=== PATIENT | male | born 1950 | race Hispanic/Latino ===

== ENCOUNTER 2020-09-28 12:42 | Inpatient (IN) | payer MEDICARE ==
[2020-09-28] VITALS (9 sets, daily range): BP systolic 106–149; BP diastolic 72–80
[~2020-09-28] VITALS: Ht 170.2 cm; Wt 75.7 kg
[2020-09-28] MEDS ORDERED: ASPIRIN 81 MG CHEW TAB PO ONE (13:15)
[2020-09-28 13:33] LABS: BASOPHILS # (AUTO) 0.1 (0.0-0.1); BASOPHILS % 0.5 % (0.0-1.0); EOSINOPHILS # (AUTO) 0.1 (0.0-0.4); HEMATOCRIT 48.9 % (38.2-49.6); HEMOGLOBIN 16.5 g/dL (14.0-18.0); LYMPHOCYTES # (AUTO) 0.5 (1.0-3.2); LYMPHOCYTES % 4.5 % (18.0-39.1); MEAN CORPUSCULAR HEMOGLOBIN 30.4 pg (28-32); MEAN CORPUSCULAR HGB CONC 33.7 g/dL (31-35); MEAN CORPUSCULAR VOLUME 90.2 fL (81-99); MONOCYTES # (AUTO) 0.5 (0.2-0.8); MONOCYTES % 3.9 % (4.4-11.3); NEUTROPHILS # (AUTO) 10.3 (2.1-6.9); NEUTROPHILS % 86.7 % (38.7-80.0); PLATELET COUNT 376 x10e3/uL (140-360); RED BLOOD COUNT 5.42 x10e6/uL (4.3-5.7); RED CELL DISTRIBUTION WIDTH 13.3 % (11.7-14.4)
[2020-09-28 13:54] LABS: ALBUMIN 2.6 g/dL (3.5-5.0); ALBUMIN/GLOBULIN RATIO 0.6 (0.8-2.0); ANION GAP 19.8 mmol/L (8-16); CALCIUM 9.2 mg/dL (8.4-10.2); CARBON DIOXIDE 22 mmol/L (22-29); CHLORIDE 99 mmol/L (98-107); CREATININE, SERUM 0.87 mg/dL (0.72-1.25); EST GLOMERULAR FILTRATION RATE > 60 ML/MIN (60-); GLUCOSE 109 mg/dL (74-118); POTASSIUM 3.8 mmol/L (3.5-5.1); SODIUM 137 mmol/L (136-145)
[2020-09-28] MEDS ORDERED: IBUPROFEN200 MG PO (14:05)
[2020-09-28] MEDS ORDERED: OMEPRAZOLE40 MG PO (14:05)
[2020-09-28] MEDS ORDERED: SYNTHROID75 MCG PO (14:05)
[2020-09-28 14:11] LABS: ALANINE AMINOTRANSFERASE 96 IU/L (0-55); ALKALINE PHOSPHATASE 86 IU/L (40-150); BLOOD UREA NITROGEN 25 mg/dL (7-26); BUN/CREATININE RATIO 27 (6-25); CREATINE KINASE 40 IU/L (30-200)
[2020-09-28] MEDS ORDERED: CEFTRIAXONE SOD 1 GM VIAL IV SCH (14:15)
[2020-09-28] MEDS: DEXAMETHASONE SOD PHOS 10 MG/1 ML VIAL IV SCH (14:46)
[2020-09-28] MEDS: CEFTRIAXONE SOD 1 GM in SODIUM CHLORIDE 0.9% 50ML 50 ML IV SCH (14:47)
[2020-09-28] MEDS: AZITHROMYCIN 500MG/NS 250 ML 250 ML IV SCH (14:47)
[2020-09-28] MEDS: ZINC SULFATE 220 MG CAP PO SCH (14:48)
[2020-09-28] MEDS ORDERED: TRAMADOL HCL 50 MG TAB PO PRN (18:45)
[2020-09-28] MEDS: ACETAMINOPHEN 325 MG TAB PO PRN (19:30)
[2020-09-28] MEDS ORDERED: ENOXAPARIN SOD INJ 40 MG/0.4 ML SYR SC SCH (21:00)
[2020-09-28] MEDS ORDERED: ZOLPIDEM TARTRATE 5 MG TAB PO PRN (21:00)
[2020-09-28] MEDS: ENOXAPARIN SODIUM INJ 100 MG/ML SYR SC SCH (21:35)
[2020-09-28] MEDS: ATORVASTATIN 20 MG TAB PO SCH (21:35)
[2020-09-29] VITALS (29 sets, daily range): BP systolic 89–129; BP diastolic 57–77
[2020-09-29] MEDS: ACETAMINOPHEN 325 MG TAB PO PRN ×3 (04:06→17:45)
[2020-09-29 06:10] LABS: BASOPHILS % 0.3 % (0.0-1.0); EOSINOPHILS # (AUTO) 0.2 (0.0-0.4); EOSINOPHILS % 1.7 % (0.0-6.0); HEMATOCRIT 44.9 % (38.2-49.6); HEMOGLOBIN 15.3 g/dL (14.0-18.0); LYMPHOCYTES # (AUTO) 0.5 (1.0-3.2); LYMPHOCYTES % 5.1 % (18.0-39.1); MEAN CORPUSCULAR HEMOGLOBIN 30.2 pg (28-32); MEAN CORPUSCULAR HGB CONC 34.1 g/dL (31-35); MEAN CORPUSCULAR VOLUME 88.6 fL (81-99); MONOCYTES # (AUTO) 0.3 (0.2-0.8); MONOCYTES % 3.4 % (4.4-11.3); NEUTROPHILS # (AUTO) 8.3 (2.1-6.9); PLATELET COUNT 365 x10e3/uL (140-360); RED BLOOD COUNT 5.07 x10e6/uL (4.3-5.7); RED CELL DISTRIBUTION WIDTH 13.3 % (11.7-14.4)
[2020-09-29] MEDS: LEVOTHYROXINE SODIUM 75 MCG TAB PO SCH (06:22)
[2020-09-29 06:32] LABS: CREATINE KINASE MB 2.5 ng/mL (0-5.0)
[2020-09-29 07:01] LABS: ALANINE AMINOTRANSFERASE 75 IU/L (0-55); ALBUMIN 2.1 g/dL (3.5-5.0); ALBUMIN/GLOBULIN RATIO 0.5 (0.8-2.0); ALKALINE PHOSPHATASE 69 IU/L (40-150); ANION GAP 14.8 mmol/L (8-16); BLOOD UREA NITROGEN 28 mg/dL (7-26); BUN/CREATININE RATIO 35 (6-25); CALCIUM 8.6 mg/dL (8.4-10.2); CARBON DIOXIDE 19 mmol/L (22-29); CHLORIDE 104 mmol/L (98-107); CREATININE, SERUM 0.81 mg/dL (0.72-1.25); EST GLOMERULAR FILTRATION RATE > 60 ML/MIN (60-); GLUCOSE 89 mg/dL (74-118); POTASSIUM 3.8 mmol/L (3.5-5.1); SODIUM 134 mmol/L (136-145)
[2020-09-29 07:17] LABS: CHOL/HDL RATIO 5.3 (3.9-4.7)
[2020-09-29] MEDS: PANTOPRAZOLE SOD 40 MG TABEC PO SCH (08:03)
[2020-09-29] MEDS: ASPIRIN 81 MG ENTERIC COATED PO SCH (08:04)
[2020-09-29] MEDS: AZITHROMYCIN 500MG/NS 250 ML 250 ML IV SCH (08:04)
[2020-09-29] MEDS: DEXAMETHASONE SOD PHOS 10 MG/1 ML VIAL IV SCH (08:04)
[2020-09-29] MEDS: ENOXAPARIN SODIUM INJ 100 MG/ML SYR SC SCH (09:26)
[2020-09-29] MEDS ORDERED: SODIUM CHLORIDE 0.9% 1000ML 1,000 ML IV ONE (11:15)
[2020-09-29] MEDS: CHOLECALCIFEROL 1,000 UNIT TAB PO SCH (12:25)
[2020-09-29] MEDS: CEFTRIAXONE SOD 1 GM in SODIUM CHLORIDE 0.9% 50ML 50 ML IV SCH (15:09)
[2020-09-29 16:38] LABS: CREATINE KINASE MB 2.1 ng/mL (0-5.0)
[2020-09-29] MEDS ORDERED: ENOXAPARIN INJ 80 MG/0.8 ML SYR SC ONE (20:59)
[2020-09-29] MEDS ORDERED: ENOXAPARIN INJ 80 MG/0.8 ML SYR SC SCH (21:00)
[2020-09-29] MEDS: ATORVASTATIN 20 MG TAB PO SCH (21:07)
[2020-09-30] VITALS (26 sets, daily range): BP systolic 95–146; BP diastolic 62–89
[2020-09-30] MEDS: ACETAMINOPHEN 325 MG TAB PO PRN ×4 (00:27→20:30)
[2020-09-30 06:32] LABS: BASOPHILS % 0.2 % (0.0-1.0); HEMATOCRIT 43.2 % (38.2-49.6); HEMOGLOBIN 14.5 g/dL (14.0-18.0); LYMPHOCYTES # (AUTO) 0.4 (1.0-3.2); LYMPHOCYTES % 4.2 % (18.0-39.1); MEAN CORPUSCULAR HEMOGLOBIN 30.5 pg (28-32); MEAN CORPUSCULAR HGB CONC 33.6 g/dL (31-35); MEAN CORPUSCULAR VOLUME 90.9 fL (81-99); MONOCYTES # (AUTO) 0.5 (0.2-0.8); MONOCYTES % 4.5 % (4.4-11.3); NEUTROPHILS # (AUTO) 8.9 (2.1-6.9); NEUTROPHILS % 88.7 % (38.7-80.0); PLATELET COUNT 429 x10e3/uL (140-360); RED BLOOD COUNT 4.75 x10e6/uL (4.3-5.7); RED CELL DISTRIBUTION WIDTH 13.3 % (11.7-14.4)
[2020-09-30] MEDS: LEVOTHYROXINE SODIUM 75 MCG TAB PO SCH (06:40)
[2020-09-30 07:00] LABS: ALANINE AMINOTRANSFERASE 50 IU/L (0-55); ALBUMIN 1.9 g/dL (3.5-5.0); ALBUMIN/GLOBULIN RATIO 0.5 (0.8-2.0); ALKALINE PHOSPHATASE 62 IU/L (40-150); ANION GAP 15.1 mmol/L (8-16); BLOOD UREA NITROGEN 34 mg/dL (7-26); BUN/CREATININE RATIO 44 (6-25); CALCIUM 8.6 mg/dL (8.4-10.2); CARBON DIOXIDE 21 mmol/L (22-29); CHLORIDE 104 mmol/L (98-107); CREATININE, SERUM 0.78 mg/dL (0.72-1.25); EST GLOMERULAR FILTRATION RATE > 60 ML/MIN (60-); GLUCOSE 120 mg/dL (74-118); POTASSIUM 4.1 mmol/L (3.5-5.1); SODIUM 136 mmol/L (136-145)
[2020-09-30] MEDS: PANTOPRAZOLE SOD 40 MG TABEC PO SCH (07:46)
[2020-09-30] MEDS: AZITHROMYCIN 500MG/NS 250 ML 250 ML IV SCH (08:49)
[2020-09-30] MEDS: ZINC SULFATE 220 MG CAP PO SCH (08:49)
[2020-09-30] MEDS: CHOLECALCIFEROL 1,000 UNIT TAB PO SCH (08:49)
[2020-09-30] MEDS: ASPIRIN 81 MG ENTERIC COATED PO SCH (08:49)
[2020-09-30] MEDS: DEXAMETHASONE SOD PHOS 10 MG/1 ML VIAL IV SCH (08:49)
[2020-09-30] MEDS: ENOXAPARIN INJ 80 MG/0.8 ML SYR SC SCH ×2 (10:25→22:23)
[2020-09-30] MEDS ORDERED: LACTATED RINGER'S 1,000 ML INJ ONE (10:30)
[2020-09-30] MEDS: CEFTRIAXONE SOD 1 GM in SODIUM CHLORIDE 0.9% 50ML 50 ML IV SCH (14:58)
[2020-09-30] MEDS: ATORVASTATIN 20 MG TAB PO SCH (19:26)
[2020-09-30] MEDS ORDERED: ENOXAPARIN INJ 80 MG/0.8 ML SYR SC ONE (22:32)
[2020-10-01] VITALS (25 sets, daily range): BP systolic 111–153; BP diastolic 65–98
[2020-10-01] MEDS: ACETAMINOPHEN 325 MG TAB PO PRN ×4 (02:30→23:13)
[2020-10-01] MEDS: GUAIFENESIN/CODEINE 10 ML CUP PO PRN ×4 (05:36→20:31)
[2020-10-01] MEDS: LEVOTHYROXINE SODIUM 75 MCG TAB PO SCH (06:17)
[2020-10-01 07:05] LABS: BASOPHILS % 0.1 % (0.0-1.0); EOSINOPHILS % 0.2 % (0.0-6.0); HEMATOCRIT 43.2 % (38.2-49.6); HEMOGLOBIN 14.3 g/dL (14.0-18.0); LYMPHOCYTES # (AUTO) 0.3 (1.0-3.2); LYMPHOCYTES % 2.6 % (18.0-39.1); MEAN CORPUSCULAR HGB CONC 33.1 g/dL (31-35); MEAN CORPUSCULAR VOLUME 90.8 fL (81-99); MONOCYTES # (AUTO) 0.6 (0.2-0.8); MONOCYTES % 5.1 % (4.4-11.3); NEUTROPHILS # (AUTO) 10.3 (2.1-6.9); NEUTROPHILS % 90.7 % (38.7-80.0); PLATELET COUNT 489 x10e3/uL (140-360); RED BLOOD COUNT 4.76 x10e6/uL (4.3-5.7); RED CELL DISTRIBUTION WIDTH 13.3 % (11.7-14.4)
[2020-10-01 07:28] LABS: ALANINE AMINOTRANSFERASE 51 IU/L (0-55); ALBUMIN 2.1 g/dL (3.5-5.0); ALBUMIN/GLOBULIN RATIO 0.6 (0.8-2.0); ALKALINE PHOSPHATASE 81 IU/L (40-150); ANION GAP 14.3 mmol/L (8-16); BLOOD UREA NITROGEN 32 mg/dL (7-26); BUN/CREATININE RATIO 44 (6-25); CALCIUM 8.4 mg/dL (8.4-10.2); CARBON DIOXIDE 23 mmol/L (22-29); CHLORIDE 103 mmol/L (98-107); CREATININE, SERUM 0.73 mg/dL (0.72-1.25); EST GLOMERULAR FILTRATION RATE > 60 ML/MIN (60-); GLUCOSE 101 mg/dL (74-118); POTASSIUM 4.3 mmol/L (3.5-5.1); SODIUM 136 mmol/L (136-145)
[2020-10-01] MEDS: PANTOPRAZOLE SOD 40 MG TABEC PO SCH (07:30)
[2020-10-01] MEDS: AZITHROMYCIN 500MG/NS 250 ML 250 ML IV SCH (08:05)
[2020-10-01] MEDS: DEXAMETHASONE SOD PHOS 10 MG/1 ML VIAL IV SCH (08:05)
[2020-10-01] MEDS: ASPIRIN 81 MG ENTERIC COATED PO SCH (08:05)
[2020-10-01] MEDS: CHOLECALCIFEROL 1,000 UNIT TAB PO SCH (08:05)
[2020-10-01] MEDS: ZINC SULFATE 220 MG CAP PO SCH (08:05)
[2020-10-01 09:13] LABS: LYMPHOCYTES % (MANUAL) 1 % (19-48); MONOCYTES % (MANUAL) 5 % (3.4-9.0); NEUTROPHILS % (MANUAL) 93 % (40-74); PLATELET ESTIMATE SLIGHTLY INCREASED; PLATELET MORPHOLOGY COMMENT NORMAL; RBC MORPHOLOGY COMMENT NORMAL
[2020-10-01] MEDS: ENOXAPARIN INJ 80 MG/0.8 ML SYR SC SCH ×2 (11:34→23:12)
[2020-10-01] MEDS: CEFTRIAXONE SOD 1 GM in SODIUM CHLORIDE 0.9% 50ML 50 ML IV SCH (14:55)
[2020-10-01] MEDS ORDERED: DEXMEDETOMIDINE 200MCG/NS 50ML 50 ML IV ONE (20:36)
[2020-10-01] MEDS: DEXMEDETOMIDINE 200MCG/NS 50ML 50 ML IV PRN (20:48)
[2020-10-02] VITALS (22 sets, daily range): BP systolic 79–116; BP diastolic 51–68
[2020-10-02] MEDS: DEXMEDETOMIDINE 200MCG/NS 50ML 50 ML IV PRN ×2 (04:36→15:59)
[2020-10-02] MEDS: GUAIFENESIN/CODEINE 10 ML CUP PO PRN ×4 (04:36→21:34)
[2020-10-02] MEDS: LEVOTHYROXINE SODIUM 75 MCG TAB PO SCH (06:17)
[2020-10-02] MEDS: ACETAMINOPHEN 325 MG TAB PO PRN ×3 (06:17→18:22)
[2020-10-02 06:25] LABS: BASOPHILS % 0.1 % (0.0-1.0); EOSINOPHILS # (AUTO) 0.2 (0.0-0.4); EOSINOPHILS % 1.8 % (0.0-6.0); HEMATOCRIT 41.8 % (38.2-49.6); HEMOGLOBIN 13.8 g/dL (14.0-18.0); LYMPHOCYTES # (AUTO) 0.3 (1.0-3.2); LYMPHOCYTES % 3.1 % (18.0-39.1); MEAN CORPUSCULAR HEMOGLOBIN 30.1 pg (28-32); MEAN CORPUSCULAR VOLUME 91.1 fL (81-99); MONOCYTES # (AUTO) 0.5 (0.2-0.8); MONOCYTES % 4.2 % (4.4-11.3); NEUTROPHILS # (AUTO) 9.7 (2.1-6.9); NEUTROPHILS % 89.3 % (38.7-80.0); PLATELET COUNT 310 x10e3/uL (140-360); RED BLOOD COUNT 4.59 x10e6/uL (4.3-5.7); RED CELL DISTRIBUTION WIDTH 13.3 % (11.7-14.4)
[2020-10-02 06:57] LABS: ALANINE AMINOTRANSFERASE 57 IU/L (0-55); ALBUMIN 1.9 g/dL (3.5-5.0); ALBUMIN/GLOBULIN RATIO 0.5 (0.8-2.0); ALKALINE PHOSPHATASE 89 IU/L (40-150); ANION GAP 10.4 mmol/L (8-16); BLOOD UREA NITROGEN 23 mg/dL (7-26); BUN/CREATININE RATIO 33 (6-25); CALCIUM 8.2 mg/dL (8.4-10.2); CARBON DIOXIDE 24 mmol/L (22-29); CHLORIDE 103 mmol/L (98-107); EST GLOMERULAR FILTRATION RATE > 60 ML/MIN (60-); GLUCOSE 87 mg/dL (74-118); POTASSIUM 4.4 mmol/L (3.5-5.1); SODIUM 133 mmol/L (136-145)
[2020-10-02] MEDS: OMEPRAZOLE 20 MG CAP PO SCH (07:49)
[2020-10-02] MEDS: ASPIRIN 81 MG ENTERIC COATED PO SCH (08:01)
[2020-10-02] MEDS: AZITHROMYCIN 500MG/NS 250 ML 250 ML IV SCH (08:01)
[2020-10-02] MEDS: CHOLECALCIFEROL 1,000 UNIT TAB PO SCH (08:01)
[2020-10-02] MEDS: DEXAMETHASONE SOD PHOS 10 MG/1 ML VIAL IV SCH (08:01)
[2020-10-02] MEDS: ZINC SULFATE 220 MG CAP PO SCH (08:01)
[2020-10-02] MEDS: ENOXAPARIN INJ 80 MG/0.8 ML SYR SC SCH ×2 (10:53→23:46)
[2020-10-02] MEDS: CEFTRIAXONE SOD 1 GM in SODIUM CHLORIDE 0.9% 50ML 50 ML IV SCH (15:10)
[2020-10-03] VITALS (26 sets, daily range): BP systolic 82–129; BP diastolic 46–94
[2020-10-03] MEDS: ACETAMINOPHEN 325 MG TAB PO PRN ×6 (00:33→23:08)
[2020-10-03] MEDS: GUAIFENESIN/CODEINE 10 ML CUP PO PRN ×5 (01:00→23:08)
[2020-10-03 06:00] LABS: BASOPHILS % 0.2 % (0.0-1.0); EOSINOPHILS % 0.1 % (0.0-6.0); HEMATOCRIT 44.7 % (38.2-49.6); HEMOGLOBIN 14.8 g/dL (14.0-18.0); LYMPHOCYTES # (AUTO) 0.4 (1.0-3.2); LYMPHOCYTES % 2.3 % (18.0-39.1); MEAN CORPUSCULAR HEMOGLOBIN 29.9 pg (28-32); MEAN CORPUSCULAR HGB CONC 33.1 g/dL (31-35); MEAN CORPUSCULAR VOLUME 90.3 fL (81-99); MONOCYTES # (AUTO) 0.6 (0.2-0.8); MONOCYTES % 3.5 % (4.4-11.3); NEUTROPHILS # (AUTO) 15.3 (2.1-6.9); PLATELET COUNT 375 x10e3/uL (140-360); RED BLOOD COUNT 4.95 x10e6/uL (4.3-5.7); RED CELL DISTRIBUTION WIDTH 13.2 % (11.7-14.4)
[2020-10-03] MEDS: LEVOTHYROXINE SODIUM 75 MCG TAB PO SCH (06:05)
[2020-10-03 06:19] LABS: ALANINE AMINOTRANSFERASE 46 IU/L (0-55); ALBUMIN 1.7 g/dL (3.5-5.0); ALBUMIN/GLOBULIN RATIO 0.4 (0.8-2.0); ALKALINE PHOSPHATASE 86 IU/L (40-150); ANION GAP 14.3 mmol/L (8-16); BLOOD UREA NITROGEN 26 mg/dL (7-26); BUN/CREATININE RATIO 40 (6-25); CALCIUM 8.5 mg/dL (8.4-10.2); CARBON DIOXIDE 22 mmol/L (22-29); CHLORIDE 103 mmol/L (98-107); CREATININE, SERUM 0.65 mg/dL (0.72-1.25); EST GLOMERULAR FILTRATION RATE > 60 ML/MIN (60-); GLUCOSE 94 mg/dL (74-118); POTASSIUM 4.3 mmol/L (3.5-5.1); SODIUM 135 mmol/L (136-145)
[2020-10-03] MEDS: OMEPRAZOLE 20 MG CAP PO SCH (07:48)
[2020-10-03] MEDS: AZITHROMYCIN 500MG/NS 250 ML 250 ML IV SCH (09:02)
[2020-10-03] MEDS: ASPIRIN 81 MG ENTERIC COATED PO SCH (09:02)
[2020-10-03] MEDS: ZINC SULFATE 220 MG CAP PO SCH (09:02)
[2020-10-03] MEDS: CHOLECALCIFEROL 1,000 UNIT TAB PO SCH (09:02)
[2020-10-03] MEDS: DEXAMETHASONE SOD PHOS 10 MG/1 ML VIAL IV SCH (09:02)
[2020-10-03 09:03] LABS: LYMPHOCYTES % (MANUAL) 3 % (19-48); MONOCYTES % (MANUAL) 2 % (3.4-9.0); NEUTROPHILS % (MANUAL) 95 % (40-74); PLATELET ESTIMATE SLIGHTLY INCREASED; RBC MORPHOLOGY COMMENT NORMAL
[2020-10-03 09:04] LABS: PLATELET MORPHOLOGY COMMENT FEW LARGE
[2020-10-03] MEDS: ENOXAPARIN INJ 80 MG/0.8 ML SYR SC SCH ×2 (10:44→23:06)
[2020-10-03] MEDS: KETOROLAC TROMETHAMINE 30 MG/ML VIAL IV PRN (10:44)
[2020-10-03] MEDS: CEFTRIAXONE SOD 1 GM in SODIUM CHLORIDE 0.9% 50ML 50 ML IV SCH (13:54)
[2020-10-03] MEDS: DEXMEDETOMIDINE 200MCG/NS 50ML 50 ML IV PRN (21:59)
[2020-10-04] VITALS (25 sets, daily range): BP systolic 82–142; BP diastolic 56–100
[2020-10-04] MEDS: ACETAMINOPHEN 325 MG TAB PO PRN ×2 (03:28→07:37)
[2020-10-04] MEDS: GUAIFENESIN/CODEINE 10 ML CUP PO PRN ×2 (03:28→07:37)
[2020-10-04 05:47] LABS: BASOPHILS % 0.2 % (0.0-1.0); EOSINOPHILS % 0.1 % (0.0-6.0); HEMATOCRIT 46.2 % (38.2-49.6); HEMOGLOBIN 15.3 g/dL (14.0-18.0); LYMPHOCYTES # (AUTO) 0.3 (1.0-3.2); LYMPHOCYTES % 1.8 % (18.0-39.1); MEAN CORPUSCULAR HEMOGLOBIN 30.2 pg (28-32); MEAN CORPUSCULAR HGB CONC 33.1 g/dL (31-35); MEAN CORPUSCULAR VOLUME 91.3 fL (81-99); MONOCYTES # (AUTO) 0.6 (0.2-0.8); MONOCYTES % 3.3 % (4.4-11.3); NEUTROPHILS # (AUTO) 15.5 (2.1-6.9); NEUTROPHILS % 92.6 % (38.7-80.0); PLATELET COUNT 336 x10e3/uL (140-360); RED BLOOD COUNT 5.06 x10e6/uL (4.3-5.7); RED CELL DISTRIBUTION WIDTH 13.5 % (11.7-14.4)
[2020-10-04 06:09] LABS: ALANINE AMINOTRANSFERASE 36 IU/L (0-55); ALBUMIN 1.7 g/dL (3.5-5.0); ALBUMIN/GLOBULIN RATIO 0.4 (0.8-2.0); ALKALINE PHOSPHATASE 100 IU/L (40-150); ANION GAP 14.8 mmol/L (8-16); BLOOD UREA NITROGEN 30 mg/dL (7-26); BUN/CREATININE RATIO 43 (6-25); CALCIUM 8.4 mg/dL (8.4-10.2); CARBON DIOXIDE 21 mmol/L (22-29); CHLORIDE 104 mmol/L (98-107); CREATININE, SERUM 0.69 mg/dL (0.72-1.25); EST GLOMERULAR FILTRATION RATE > 60 ML/MIN (60-); GLUCOSE 132 mg/dL (74-118); POTASSIUM 4.8 mmol/L (3.5-5.1); SODIUM 135 mmol/L (136-145)
[2020-10-04] MEDS: LEVOTHYROXINE SODIUM 75 MCG TAB PO SCH (06:48)
[2020-10-04] MEDS: OMEPRAZOLE 20 MG CAP PO SCH (07:37)
[2020-10-04] MEDS: ZINC SULFATE 220 MG CAP PO SCH (08:06)
[2020-10-04] MEDS: DEXAMETHASONE SOD PHOS 10 MG/1 ML VIAL IV SCH (08:06)
[2020-10-04] MEDS: CHOLECALCIFEROL 1,000 UNIT TAB PO SCH (08:06)
[2020-10-04] MEDS: ASPIRIN 81 MG ENTERIC COATED PO SCH (08:06)
[2020-10-04] MEDS: AZITHROMYCIN 500MG/NS 250 ML 250 ML IV SCH (08:06)
[2020-10-04] MEDS ORDERED: LORAZEPAM INJ 2 MG/ML VIAL IV ONE (08:45)
[2020-10-04] MEDS: OXYMETAZOLINE HCL 0.05% NAS 1 SPRAY BTL SCH ×2 (09:00→20:52)
[2020-10-04] MEDS: ENOXAPARIN INJ 80 MG/0.8 ML SYR SC SCH ×2 (13:00→23:08)
[2020-10-04] MEDS: CEFTRIAXONE SOD 1 GM in SODIUM CHLORIDE 0.9% 50ML 50 ML IV SCH (14:30)
[2020-10-04] MEDS: LORAZEPAM INJ 2 MG/ML VIAL IV PRN (15:12)
[2020-10-04] MEDS ORDERED: LORAZEPAM INJ 2 MG/ML VIAL ONE (15:19)
[2020-10-05] VITALS (25 sets, daily range): BP systolic 74–130; BP diastolic 56–90
[2020-10-05 04:31] LABS: BASOPHILS % 0.1 % (0.0-1.0); HEMATOCRIT 44.7 % (38.2-49.6); HEMOGLOBIN 14.5 g/dL (14.0-18.0); LYMPHOCYTES # (AUTO) 0.4 (1.0-3.2); LYMPHOCYTES % 2.6 % (18.0-39.1); MEAN CORPUSCULAR HEMOGLOBIN 30.2 pg (28-32); MEAN CORPUSCULAR HGB CONC 32.4 g/dL (31-35); MEAN CORPUSCULAR VOLUME 93.1 fL (81-99); MONOCYTES # (AUTO) 0.6 (0.2-0.8); MONOCYTES % 3.4 % (4.4-11.3); NEUTROPHILS # (AUTO) 15.1 (2.1-6.9); NEUTROPHILS % 91.8 % (38.7-80.0); PLATELET COUNT 313 x10e3/uL (140-360); RED CELL DISTRIBUTION WIDTH 13.8 % (11.7-14.4)
[2020-10-05 04:48] LABS: ALANINE AMINOTRANSFERASE 32 IU/L (0-55); ALBUMIN 1.7 g/dL (3.5-5.0); ALBUMIN/GLOBULIN RATIO 0.4 (0.8-2.0); ALKALINE PHOSPHATASE 90 IU/L (40-150); ANION GAP 16.8 mmol/L (8-16); BLOOD UREA NITROGEN 42 mg/dL (7-26); BUN/CREATININE RATIO 58 (6-25); CALCIUM 8.2 mg/dL (8.4-10.2); CARBON DIOXIDE 20 mmol/L (22-29); CHLORIDE 107 mmol/L (98-107); CREATININE, SERUM 0.72 mg/dL (0.72-1.25); EST GLOMERULAR FILTRATION RATE > 60 ML/MIN (60-); GLUCOSE 118 mg/dL (74-118); POTASSIUM 4.8 mmol/L (3.5-5.1); SODIUM 139 mmol/L (136-145)
[2020-10-05] MEDS: KETOROLAC TROMETHAMINE 30 MG/ML VIAL IV PRN ×2 (05:07→20:18)
[2020-10-05] MEDS ORDERED: KETOROLAC TROMETHAMINE 30 MG/ML VIAL ONE ×2 (05:12→20:18)
[2020-10-05] MEDS: LEVOTHYROXINE SODIUM 75 MCG TAB PO SCH (05:45)
[2020-10-05] MEDS: OMEPRAZOLE 20 MG CAP PO SCH (07:30)
[2020-10-05] MEDS: OXYMETAZOLINE HCL 0.05% NAS 1 SPRAY BTL SCH ×2 (07:33→20:25)
[2020-10-05] MEDS: CHOLECALCIFEROL 1,000 UNIT TAB PO SCH (07:33)
[2020-10-05] MEDS: ASPIRIN 81 MG ENTERIC COATED PO SCH (07:33)
[2020-10-05] MEDS: ZINC SULFATE 220 MG CAP PO SCH (07:33)
[2020-10-05] MEDS: AZITHROMYCIN 500MG/NS 250 ML 250 ML IV SCH (08:31)
[2020-10-05] MEDS: DEXAMETHASONE SOD PHOS 10 MG/1 ML VIAL IV SCH (08:31)
[2020-10-05] MEDS: LORAZEPAM INJ 2 MG/ML VIAL IV PRN (09:31)
[2020-10-05] MEDS: DEXMEDETOMIDINE 200MCG/NS 50ML 50 ML IV PRN ×2 (10:59→20:22)
[2020-10-05] MEDS ORDERED: LACTATED RINGER'S 500 ML INJ ONE (13:00)
[2020-10-05] MEDS: ENOXAPARIN INJ 80 MG/0.8 ML SYR SC SCH (14:20)
[2020-10-05] MEDS: CEFTRIAXONE SOD 1 GM in SODIUM CHLORIDE 0.9% 50ML 50 ML IV SCH (14:20)
[2020-10-05] MEDS: ACETAMINOPHEN 325 MG TAB PO PRN (16:34)
[2020-10-06] VITALS (26 sets, daily range): BP systolic 93–166; BP diastolic 57–102
[2020-10-06] MEDS: ENOXAPARIN INJ 80 MG/0.8 ML SYR SC SCH ×3 (00:43→23:44)
[2020-10-06 04:22] LABS: BASOPHILS % 0.2 % (0.0-1.0); HEMATOCRIT 48.3 % (38.2-49.6); HEMOGLOBIN 15.6 g/dL (14.0-18.0); LYMPHOCYTES # (AUTO) 0.6 (1.0-3.2); LYMPHOCYTES % 3.2 % (18.0-39.1); MEAN CORPUSCULAR HEMOGLOBIN 30.1 pg (28-32); MEAN CORPUSCULAR HGB CONC 32.3 g/dL (31-35); MEAN CORPUSCULAR VOLUME 93.2 fL (81-99); MONOCYTES # (AUTO) 0.6 (0.2-0.8); MONOCYTES % 3.4 % (4.4-11.3); NEUTROPHILS # (AUTO) 16.8 (2.1-6.9); NEUTROPHILS % 90.7 % (38.7-80.0); PLATELET COUNT 376 x10e3/uL (140-360); RED BLOOD COUNT 5.18 x10e6/uL (4.3-5.7); RED CELL DISTRIBUTION WIDTH 13.9 % (11.7-14.4)
[2020-10-06 04:37] LABS: ANION GAP 17.1 mmol/L (8-16); BLOOD UREA NITROGEN 60 mg/dL (7-26); BUN/CREATININE RATIO 75 (6-25); CALCIUM 8.4 mg/dL (8.4-10.2); CARBON DIOXIDE 23 mmol/L (22-29); CHLORIDE 109 mmol/L (98-107); EST GLOMERULAR FILTRATION RATE > 60 ML/MIN (60-); GLUCOSE 128 mg/dL (74-118); POTASSIUM 5.1 mmol/L (3.5-5.1); SODIUM 144 mmol/L (136-145)
[2020-10-06] MEDS: LEVOTHYROXINE SODIUM 75 MCG TAB PO SCH (06:30)
[2020-10-06] MEDS: OMEPRAZOLE 20 MG CAP PO SCH (07:30)
[2020-10-06] MEDS: DEXMEDETOMIDINE 200MCG/NS 50ML 50 ML IV PRN ×2 (08:00→18:50)
[2020-10-06] MEDS: AZITHROMYCIN 500MG/NS 250 ML 250 ML IV SCH (08:31)
[2020-10-06] MEDS: CHOLECALCIFEROL 1,000 UNIT TAB PO SCH (09:00)
[2020-10-06] MEDS: OXYMETAZOLINE HCL 0.05% NAS 1 SPRAY BTL SCH ×2 (09:00→20:17)
[2020-10-06] MEDS: ZINC SULFATE 220 MG CAP PO SCH (09:00)
[2020-10-06] MEDS: ASPIRIN 81 MG ENTERIC COATED PO SCH (09:00)
[2020-10-06] MEDS: VANCOMYCIN 1GM/NS 250 ML 250 ML IV SCH (10:45)
[2020-10-06] MEDS ORDERED: CHLORASEPTIC SPRAY 177 ML BTL MM PRN (13:00)
[2020-10-06] MEDS: DEXTROSE 5%/0.45% SOD CHL 1,000 ML IV SCH ×2 (13:11→22:18)
[2020-10-06] MEDS: PIPERACILLIN/TAZOBACTAM 2.25 GM in SODIUM CHLORIDE 0.9% 50ML 50 ML IV SCH ×2 (14:00→22:18)
[2020-10-06] MEDS ORDERED: KETOROLAC TROMETHAMINE 30 MG/ML VIAL IV NR (14:00)
[2020-10-06] MEDS: MORPHINE SULFATE INJ 2 MG/ML SYR IV PRN (17:30)
[2020-10-06] MEDS: DEXAMETHASONE SOD PHOS 10 MG/1 ML VIAL IV SCH (18:20)
[2020-10-07] VITALS (26 sets, daily range): BP systolic 60–133; BP diastolic 43–89
[2020-10-07] MEDS: MORPHINE SULFATE INJ 2 MG/ML SYR IV PRN ×4 (01:41→16:19)
[2020-10-07 04:24] LABS: BASOPHILS % 0.2 % (0.0-1.0); HEMATOCRIT 46.5 % (38.2-49.6); HEMOGLOBIN 14.8 g/dL (14.0-18.0); LYMPHOCYTES # (AUTO) 0.3 (1.0-3.2); LYMPHOCYTES % 1.4 % (18.0-39.1); MEAN CORPUSCULAR HGB CONC 31.8 g/dL (31-35); MEAN CORPUSCULAR VOLUME 94.1 fL (81-99); MONOCYTES # (AUTO) 0.5 (0.2-0.8); MONOCYTES % 2.9 % (4.4-11.3); NEUTROPHILS # (AUTO) 17.3 (2.1-6.9); NEUTROPHILS % 94.5 % (38.7-80.0); PLATELET COUNT 292 x10e3/uL (140-360); RED BLOOD COUNT 4.94 x10e6/uL (4.3-5.7); RED CELL DISTRIBUTION WIDTH 13.9 % (11.7-14.4)
[2020-10-07 04:45] LABS: ALANINE AMINOTRANSFERASE 38 IU/L (0-55); ALBUMIN 1.7 g/dL (3.5-5.0); ALBUMIN/GLOBULIN RATIO 0.4 (0.8-2.0); ALKALINE PHOSPHATASE 155 IU/L (40-150); BLOOD UREA NITROGEN 43 mg/dL (7-26); BUN/CREATININE RATIO 62 (6-25); CALCIUM 7.7 mg/dL (8.4-10.2); CARBON DIOXIDE 22 mmol/L (22-29); CHLORIDE 112 mmol/L (98-107); CREATININE, SERUM 0.69 mg/dL (0.72-1.25); EST GLOMERULAR FILTRATION RATE > 60 ML/MIN (60-); GLUCOSE 238 mg/dL (74-118); SODIUM 142 mmol/L (136-145)
[2020-10-07] MEDS: LEVOTHYROXINE SODIUM 75 MCG TAB PO SCH (05:31)
[2020-10-07] MEDS: PIPERACILLIN/TAZOBACTAM 2.25 GM in SODIUM CHLORIDE 0.9% 50ML 50 ML IV SCH ×3 (06:06→20:25)
[2020-10-07] MEDS: OMEPRAZOLE 20 MG CAP PO SCH (07:26)
[2020-10-07] MEDS: ZINC SULFATE 220 MG CAP PO SCH (07:27)
[2020-10-07] MEDS: CHOLECALCIFEROL 1,000 UNIT TAB PO SCH (07:27)
[2020-10-07] MEDS: ASPIRIN 81 MG ENTERIC COATED PO SCH (07:27)
[2020-10-07] MEDS: DEXAMETHASONE SOD PHOS 10 MG/1 ML VIAL IV SCH (09:25)
[2020-10-07] MEDS: VANCOMYCIN 1GM/NS 250 ML 250 ML IV SCH (09:25)
[2020-10-07] MEDS: PANTOPRAZOLE 40 MG 10ML VIAL IV SCH ×2 (11:17→20:25)
[2020-10-07] MEDS: DEXMEDETOMIDINE 200MCG/NS 50ML 50 ML IV PRN ×4 (11:45→21:15)
[2020-10-07] MEDS: LORAZEPAM INJ 2 MG/ML VIAL IV PRN (11:45)
[2020-10-07] MEDS: ONDANSETRON HCL INJ 2MG/ML 2ML 2 MG/ML VIAL IV PRN ×2 (16:19→17:57)
[2020-10-07] MEDS ORDERED: MORPHINE SULFATE INJ 2 MG/ML SYR IV PRN (16:30)
[2020-10-07] MEDS ORDERED: LORAZEPAM INJ 2 MG/ML VIAL IV PRN (16:30)
[2020-10-07] MEDS ORDERED: CENTRAL TPN FORMULA 1 BAG IV SCH (20:00)
[2020-10-08] VITALS (10 sets, daily range): BP systolic 56–66; BP diastolic 38–50
[2020-10-08] MEDS: DEXMEDETOMIDINE 200MCG/NS 50ML 50 ML IV PRN ×3 (02:38→05:29)
[2020-10-08] MEDS: PIPERACILLIN/TAZOBACTAM 2.25 GM in SODIUM CHLORIDE 0.9% 50ML 50 ML IV SCH (05:05)
[2020-10-08] MEDS: ZINC SULFATE 220 MG CAP PO SCH (08:22)
[2020-10-08] MEDS: ASPIRIN 81 MG ENTERIC COATED PO SCH (08:22)
[2020-10-08] MEDS: CHOLECALCIFEROL 1,000 UNIT TAB PO SCH (08:22)
[2020-10-08 08:23] LABS: BASOPHILS % 0.2 % (0.0-1.0); EOSINOPHILS # (AUTO) 0.1 (0.0-0.4); EOSINOPHILS % 0.4 % (0.0-6.0); HEMATOCRIT 51.6 % (38.2-49.6); HEMOGLOBIN 14.5 g/dL (14.0-18.0); LYMPHOCYTES # (AUTO) 0.8 (1.0-3.2); LYMPHOCYTES % 3.8 % (18.0-39.1); MEAN CORPUSCULAR HEMOGLOBIN 30.3 pg (28-32); MEAN CORPUSCULAR HGB CONC 28.1 g/dL (31-35); MEAN CORPUSCULAR VOLUME 107.9 fL (81-99); MONOCYTES # (AUTO) 1.2 (0.2-0.8); MONOCYTES % 5.2 % (4.4-11.3); NEUTROPHILS % 81.2 % (38.7-80.0); PLATELET COUNT 155 x10e3/uL (140-360); RED BLOOD COUNT 4.78 x10e6/uL (4.3-5.7); RED CELL DISTRIBUTION WIDTH 14.6 % (11.7-14.4)
[2020-10-08] MEDS: DEXAMETHASONE SOD PHOS 10 MG/1 ML VIAL IV SCH (08:43)
[2020-10-08] MEDS: PANTOPRAZOLE 40 MG 10ML VIAL IV SCH (08:43)
[2020-10-08] MEDS ORDERED: ACETAMINOPHEN 325 MG SUPP PR PRN (09:00)
[2020-10-08] MEDS ORDERED: DEXMEDETOMIDINE 200MCG/NS 50ML 50 ML IV PRN (09:00)
[2020-10-08] MEDS ORDERED: ENOXAPARIN SOD INJ 40 MG/0.4 ML SYR SC SCH (09:00)
[2020-10-08] MEDS ORDERED: LEVOTHYROXINE SODIUM 100 MCG/VIAL IV SCH (09:00)
[2020-10-08 09:05] LABS: ALANINE AMINOTRANSFERASE 2465 IU/L (0-55); ALBUMIN 1.7 g/dL (3.5-5.0); ALBUMIN/GLOBULIN RATIO 0.4 (0.8-2.0); ALKALINE PHOSPHATASE 127 IU/L (40-150); ANION GAP 25.5 mmol/L (8-16); BLOOD UREA NITROGEN 70 mg/dL (7-26); BUN/CREATININE RATIO 29 (6-25); CALCIUM 7.8 mg/dL (8.4-10.2); CARBON DIOXIDE 18 mmol/L (22-29); CHLORIDE 111 mmol/L (98-107); CREATININE, SERUM 2.38 mg/dL (0.72-1.25); EST GLOMERULAR FILTRATION RATE 27 ML/MIN (60-); GLUCOSE 162 mg/dL (74-118); SODIUM 146 mmol/L (136-145)
[2020-10-08 09:07] LABS: POTASSIUM 8.5 mmol/L (3.5-5.1)
[2020-10-08] MEDS ORDERED: MORPHINE SULFATE INJ 4 MG/ML INJ 1ML IV SCH (10:00)
[2020-10-08] MEDS ORDERED: LORAZEPAM INJ 2 MG/ML VIAL IV SCH (10:00)
[2020-10-08 10:37] LABS: ANISOCYTOSIS SLIGHT; BAND NEUTROPHILS % (MANUAL) 3 %; LYMPHOCYTES % (MANUAL) 4 % (19-48); MONOCYTES % (MANUAL) 6 % (3.4-9.0); MYELOCYTES % (MANUAL) 2 % (0-0); NEUTROPHILS % (MANUAL) 84 % (40-74); NUCLEATED RED BLOOD CELLS 3; PLATELET ESTIMATE ADEQUATE; PLATELET MORPHOLOGY COMMENT NORMAL
[2020-10-08 10:38] LABS: HYPOCHROMASIA SLIGHT; RBC MORPHOLOGY COMMENT ABNORMAL
== END 2020-10-08 12:45 | disposition expired | DRG 177 ==
LOC: ER 13:15 → ERHOLD 15:24 → ICU 16:57
PROVIDERS: ADMIT Internal Medicine; ATTEND Internal Medicine
PROC: 8E0ZXY6 Isolation (ICD-10-PCS; principal; 2020-09-28)
PROC: 02HV33Z Insertion of Infusion Device into Superior Vena Cava, Percutaneous Approach (ICD-10-PCS; 2020-09-29)
DX: U07.1 COVID-19 (principal); I21.A1 Myocardial infarction type 2; J12.82 Pneumonia due to coronavirus disease 2019; J96.01 Acute respiratory failure with hypoxia; J15.9 Unspecified bacterial pneumonia; R65.21 Severe sepsis with septic shock; E44.0 Moderate protein-calorie malnutrition; Z66 Do not resuscitate; E03.9 Hypothyroidism, unspecified; Z85.038 Personal history of other malignant neoplasm of large intestine; K21.9 Gastro-esophageal reflux disease without esophagitis; R00.1 Bradycardia, unspecified
CPT/HCPCS: 36415; 36569; 71045; 80048; 80053; 80061; 82550; 82553; 84484; 85025; 93005; 93306; 94660; 99284; J0456; J0696; J1100; J1650; J1885; J2060; J2270; J2405; J2543; J3370; J7030; J7121; U0002